=== PATIENT | male | born 1995 | race African-American/Black ===

== ENCOUNTER 2016-09-07 18:18 | Emergency (ER) | payer OTHER | END 2016-09-07 21:07 | disposition left against medical advice (07) | LOC: ER 18:18 | DX: Z53.9 Procedure and treatment not carried out, unspecified reason (principal); R06.02 Shortness of breath ==

== ENCOUNTER 2016-10-06 16:57 | Emergency (ER) | payer SELFPAY ==
[2016-10-06] MEDS ORDERED: IBUPROFEN 800 MG TABLET PO ONE (17:44)
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
[2016-10-06] MEDS ORDERED: OXYCODONE-ACETAMINOPHEN 5-325 MG TABLET PO ONE (19:16)
[2016-10-06 19:35] VITALS: BP 119/74
== END 2016-10-06 19:34 | disposition home or self-care (01) ==
LOC: ER 16:57
PROC: 2W39X1Z Immobilization of Left Upper Extremity using Splint (ICD-10-PCS; principal; 2016-10-06)
DX: S52.125A Nondisplaced fracture of head of left radius, initial encounter for closed fracture (principal); M25.522 Pain in left elbow; V86.99XA Unspecified occupant of other special all-terrain or other off-road motor vehicle injured in nontraffic accident, initial encounter; Y93.89 Activity, other specified; Y99.0 Civilian activity done for income or pay; Z87.891 Personal history of nicotine dependence
CPT/HCPCS: 99283

== ENCOUNTER 2016-10-25 15:57 | Emergency (ER) | payer SELFPAY ==
--- NOTE | 2016-10-25 16:35 | ER Document Report ---
ED General - General TRAVEL OUTSIDE OF THE [place] IN LAST 30 DAYS: No - HPI Onset: Just prior to arrival - Refer to HPI notes Similar symptoms previously: No Recently seen / treated by doctor: No <ARMIN CONTRERAS - Last Filed: 10/25/16 16:47> <ISAAC VANEGAS - Last Filed: 10/25/16 17:56> - General Chief Complaint: Chest Pain > 30 Stated Complaint: HEART BEATING FAST,LEFT ARM TINGLING Time Seen by Provider: 10/25/16 16:30 Notes: Patient is a 21 year old male presenting to the ED for dyspnea and his heart skipping a beat. Patient states he was on his way home from work when he felt his heart skip a beat with a sharp pain. Patient states he then felt his breathing change. Patient states he has had some "breathing problems" over the last 4 months. Patient states he feels like he can't get any air. Patient states he is a former smoker; he quit 2 months ago. Patient denies any cough or fever. 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 (ARMIN CONTRERAS) - Related Data Allergies/Adverse Reactions: No Known Allergies Allergy (Verified 10/06/16 17:14) Past Medical History - General Information source: Patient - Social History Smoking Status: Former Smoker - quit 08/2016 Family History: None Patient has suicidal ideation: No Patient has homicidal ideation: No Pulmonary Medical History: Reports: Hx Pneumonia Surgical Hx: Negative - Immunizations Immunizations up to date: Yes Hx Diphtheria, Pertussis, Tetanus Vaccination: Yes <ARMIN CONTRERAS - Last Filed: 10/25/16 16:47> Review of Systems - Review of Systems Constitutional: No symptoms reported EENT: No symptoms reported Cardiovascular: See HPI Respiratory: See HPI Gastrointestinal: No symptoms reported Genitourinary: No symptoms reported Male Genitourinary: No symptoms reported Musculoskeletal: No symptoms reported Skin: No symptoms reported Hematologic/Lymphatic: No symptoms reported, See HPI Neurological/Psychological: No symptoms reported -: Yes All other systems reviewed and negative <ARMIN CONTRERAS - Last Filed: 10/25/16 16:47> Physical Exam <ARMIN CONTRERAS - Last Filed: 10/25/16 16:47> <ISAAC VANEGAS - Last Filed: 10/25/16 17:56> - Vital signs Vitals: Temp Pulse Resp BP Pulse Ox 97.8 F 93 16 126/73 H 100 10/25/16 16:05 10/25/16 16:05 10/25/16 16:05 10/25/16 16:05 10/25/16 16:05 - Notes Notes: GENERAL: Alert, interacts well. No acute distress. HEAD: Normocephalic, atraumatic. EYES: Pupils equal, round, and reactive to light. Extraocular movements intact. ENT: Oral mucosa moist, tongue midline. NECK: Full range of motion. Supple. Trachea midline. LUNGS: Clear to auscultation bilaterally, no wheezes, rales, or rhonchi. No respiratory distress. HEART: Regular rate and rhythm. No murmurs, gallops, or rubs. ABDOMEN: Soft, non-tender. EXTREMITIES: Moves all 4 extremities spontaneously. NO edema. No calf tenderness. NEUROLOGICAL: Alert and oriented x3. Normal speech. PSYCH: Normal affect, normal mood. SKIN: Warm, dry, normal turgor. No rashes or lesions noted. (ARMIN CONTRERAS) Course <ARMIN CONTRERAS - Last Filed: 10/25/16 16:47> - Laboratory Result Diagrams: 10/25/16 16:45 10/25/16 16:45 - Diagnostic Test Radiology reviewed: Image reviewed - No acute disease, Reports reviewed <ISAAC VANEGAS - Last Filed: 10/25/16 17:56> - Re-evaluation Re-evalutation: 10/25/16 17:54 I discussed with patient findings. Discussed with him consideration for other arrhythmia such as intermittent A. fib or PVC. Further differential included a pulmonary embolus, this seems less likely and by PERC rules, this should be ruled out. He understands she will need mandatory follow-up and I will help give him a physician's name to contact. He understands to return if he is worsening otherwise. (ISAAC VANEGAS) - Vital Signs Vital signs: Temp Pulse Resp BP Pulse Ox 97.8 F 93 16 126/73 H 100 10/25/16 16:05 10/25/16 16:05 10/25/16 16:05 10/25/16 16:05 10/25/16 16:05 - Laboratory Laboratory results interpreted by me: 10/25/16 10/25/16 16:45 16:45 Hgb 12.5 L MCV 77 L MCH 23.5 L MCHC 30.4 L Creatinine 1.28 H Discharge <ARMIN CONTRERAS - Last Filed: 10/25/16 16:47> <ISAAC VANEGAS - Last Filed: 10/25/16 17:56> - Discharge Clinical Impression: Chest pain, Dyspnea, Palpitations Condition: Good Disposition: HOME, SELF-CARE Additional Instructions: Return for worsening or concern [facility]errals: [facility]Provider Group[facility] - Follow up in 3-5 days Scribe Documentation - Scribe Written by Drew:: Drew Kincaid 10/25/16 16:50 acting as scribe for :: Shawna <ARMIN CONTRERAS - Last Filed: 10/25/16 16:47>
[2016-10-25 17:07] LABS: ABSOLUTE EOSINOPHILS # (AUTO) 0.1 10^3/uL (0.0-0.6); ABSOLUTE MONOCYTES (AUTO) 0.4 10^3/uL (0.1-1.4); ABSOLUTE NEUT (AUTO) 2.9 10^3/uL (1.7-8.2); BASOPHILS % (AUTO) 0.7 % (0-2); EOSINOPHILS % (AUTO) 1.5 % (0-6); HEMATOCRIT 41.2 % (37.9-51.0); HEMOGLOBIN 12.5 g/dL (13.5-17.0); HGB HCT DIFFERENCE -3.7; LYMPHOCYTES % (AUTO) 37.4 % (13-45); MEAN CORPUSCULAR HEMOGLOBIN 23.5 pg (27.0-33.4); MEAN CORPUSCULAR HGB CONC 30.4 g/dL (32.0-36.0); MEAN CORPUSCULAR VOLUME 77 fl (80-97); MONOCYTES % (AUTO) 7.1 % (3-13); RED BLOOD COUNT 5.32 10^6/uL (4.35-5.55); RED CELL DISTRIBUTION WIDTH 13.1 % (11.5-14.0); SEGMENTED NEUTROPHILS % (AUTO) 53.3 % (42-78); WHITE BLOOD COUNT 5.4 10^3/uL (4.0-10.5)
--- NOTE | 2016-10-25 17:17 | EKG REPORT ---
SEVERITY:- NORMAL ECG - SINUS RHYTHM : Confirmed by: Jewell Andrews MD 25-Oct-2016 17:16:54
--- NOTE | 2016-10-25 17:18 | RADIOLOGY REPORT (SQ) ---
EXAM DESCRIPTION: CHEST PA/LAT COMPLETED DATE/TIME: 10/25/2016 5:02 pm REASON FOR STUDY: Dyspnea COMPARISON: None. EXAM PARAMETERS: NUMBER OF VIEWS: two views TECHNIQUE: Digital Frontal and Lateral radiographic views of the chest acquired. RADIATION DOSE: NA LIMITATIONS: none FINDINGS: LUNGS AND PLEURA: No opacities, masses or pneumothorax. No pleural effusion. MEDIASTINUM AND HILAR STRUCTURES: No masses or contour abnormalities. HEART AND VASCULAR STRUCTURES: Heart normal size. No evidence for failure. BONES: No acute findings. HARDWARE: None in the chest. OTHER: No other significant finding. IMPRESSION: NO SIGNIFICANT RADIOGRAPHIC FINDING IN THE CHEST. TECHNICAL DOCUMENTATION: JOB ID: [id number]- All Rights Reserved
[2016-10-25 17:24] LABS: ANION GAP 11 (5-19); BLOOD UREA NITROGEN 18 mg/dL (7-20); CALCIUM 9.9 mg/dL (8.4-10.2); CARBON DIOXIDE 26 mmol/L (22-30); CHLORIDE 106 mmol/L (98-107); CREATININE RESULT 1.28 mg/dL (0.52-1.25); GLUCOSE 76 mg/dL (75-110); MAGNESIUM 1.8 mg/dL (1.6-2.3); POTASSIUM 4.3 mmol/L (3.6-5.0); SODIUM 143.4 mmol/L (137-145)
[2016-10-25 18:09] VITALS: BP 112/64
== END 2016-10-25 18:11 | disposition home or self-care (01) ==
LOC: ER 15:57
DX: R07.9 Chest pain, unspecified (principal); R06.00 Dyspnea, unspecified; R00.2 Palpitations; R20.0 Anesthesia of skin; Z87.891 Personal history of nicotine dependence
CPT/HCPCS: 36415; 71020; 80048; 83735; 84484; 85025; 93005; 93010; 99285